=== PATIENT | male | born 1960 ===

== ENCOUNTER 2023-05-03 11:58 | Outpatient (CLI) | payer OTHER, SELFPAY ==
[2023-05-03 10:02] LABS: Abs Immature Grans 0.04 10^3/uL (0.0-0.06); Absolute Basophil Count 0.06 10^3/uL (0.0-0.2); Absolute Eosinophil Count 0.87 10^3/uL (0.0-0.7); Absolute Monocyte Count 0.66 10^3/uL (0.1-0.8); Absolute Neutrophil Count 6.08 10^3/uL (1.2-6.7); Basophils % 0.5; Eosinophils % 7.1; HCT 41.1 % (40.0-50.0); HGB 13.9 g/dL (13.5-17.5); Immature Grans % 0.3; MCH 29.3 pg (27.0-33.0); MCHC 33.8 % (32.0-36.0); MCV 87 fL (80-95); MPV 8.1 fL (8.0-11.0); Monocytes % 5.4; Neutrophils % 49.7; Platelet Count 331 10^3/uL (130-400); RBC 4.74 10^6/uL (4.36-5.78); RDW 12.9 % (11.8-14.1); RDW-SD 40.7 fL; WBC 12.23 10^3/uL (4.4-10.8)
[2023-05-03 10:03] LABS: Absolute Lymphocyte Count 4.53 10^3/uL (1.2-3.4)
[2023-05-03 10:17] LABS: ALT 16 U/L (16-63); AST 13 U/L (15-37); Albumin 3.3 g/dL (3.4-5.0); Alkaline Phosphatase 114 U/L (46-116); Anion Gap 9.4 mmol/L (3-11); BUN 15 mg/dL (7-18); Bilirubin, Total 0.4 mg/dL (0.2-1.0); CO2 28.6 mmol/L (21.0-32.0); CREATININE 0.9 mg/dL (0.70-1.30); Calcium 9.3 mg/dL (8.5-10.1); Chloride 102 mmol/L (98-107); Estimated GFR 95.97 (mL/min/1.73m2); Glucose 100 mg/dL (74-106); Magnesium 1.8 mg/dL (1.8-2.4); Potassium 4.4 mmol/L (3.5-5.1); Sodium 140 mmol/L (136-145); Total Protein 7.6 g/dL (6.4-8.2)
--- OUTSIDE RECORDS SUMMARY | 2023-05-03 12:00 | XMS_ITS | Continuity of Care Document ---
Author Name Unknown Organization [facility] Address [address] [place] [address] Encounter [facility] NBR [id number] Date(s): 04/22/23 - 04/22/[address] [address]- Encounter Diagnosis Other specified disorders of brain(Final) - Malignant neoplasm of upper lobe, right bronchus or lung(Final) - Discharge Disposition: Home or Self Care Attending Physician: PINA CUMMINGS MD Admitting Physician: PINA CUMMINGS MD Referring Physician: PINA CUMMINGS MD Results Radiology Reports * Exam Date Time Procedure Performing Provider Status 04/22/23 9:07 AM MRI Brain w/ + w/o Contrast Janet Fuller; Gaurav (Verified) Notes: (MRI Brain w/ + w/o Contrast) Reason For Exam: LUNG CANCER MRI Brain w/ + w/o Contrast EXAM DESCRIPTION: MRI Brain w/ + w/o Contrast 04/22/2023 INDICATION: LUNG CANCER TECHNIQUE: Technique: Multiplanar MRI examination of the head including FLAIR and diffusion series. Postcontrast T1-weighted images were obtained in 3 planes. MultiHance contrast was utilized COMPARISON: None FINDINGS: No intracranial mass, mass effect or abnormal enhancement with no evidence of intracranial metastatic disease. Diffusion weighted images demonstrate no focal area of acute or recent infarct. No hydrocephalus, extra-axial fluid collection or blood breakdown products. Small focal areas of decreased signal in the basal ganglia region bilaterally on gradient echo images with consistent with basal ganglia calcification Multiple small scattered nonspecific foci of periventricular and subcortical white matter T2 signal prolongation bilaterally. Diagnostic possibilities would include mild chronic microangiopathy, sequela of migraine headaches, vasculitic process, or less likely demyelination Cerebellar tonsil position is normal. The pituitary gland demonstrates normal morphology and signal intensity. No significant temporal horn asymmetry. Visualized vascular flow voids and cranial nerves appear within normal limits. Mild left ethmoid sinus mucosal thickening. Remaining visualized paranasal sinuses and mastoid air cells are grossly clear. IMPRESSION: No intracranial mass, mass effect or abnormal enhancement with no evidence of intracranial metastatic disease No acute or recent infarct on diffusion series Scattered small nonspecific periventricular and subcortical white matter lesions bilaterally with diagnostic possibilities as detailed above. JOB #: [id number] Final Signed by: Jian Shabazz MD Signed (Electronic Signature): 04/22/2023 10:09 am * Exam Date Time Procedure Performing Provider Status 04/22/23 8:[address] Chest w/ Contrast Megha Lewis; Auth (Verified) Notes: (CT Chest w/ Contrast) Reason For Exam: LUNG CANCER CT Chest w/ Contrast EXAM DESCRIPTION: CT Chest w/ Contrast 04/22/2023 INDICATION: LUNG CANCER TECHNIQUE: All CT scans at this facility use at least one of these dose optimization techniques: Automated exposure control; mA and/or kV adjustment per patient size (includes targeted exams where dose is matched to clinical indication); or iterative reconstruction. Technique: Axial CT images of the chest with IV contrast administration 100 cc of Isovue-300 contrast was utilized COMPARISON: None FINDINGS: No mediastinal mass or adenopathy with scattered nonenlarged mediastinal lymph nodes. No hilar adenopathy. Mildly enlarged bilateral axillary lymph nodes measuring up to 13 mm in short axis dimension. No pericardial effusion. No central pulmonary artery filling defect identified. Normal caliber thoracic aorta with mild atherosclerotic calcifications. Paraseptal emphysematous changes bilaterally most pronounced in the upper lobe distribution. Pleural-based spiculated soft tissue mass in the lateral right apex highly suspicious for neoplasm measuring 3.1 x 3.6 x 3 cm in transverse, AP and CC dimensions respectively. No adjacent osseous rib destructive changes. Tiny noncalcified nodular opacity in the right mid chest on image number [id number] measuring 3.2 mm in diameter, too small to characterize. No additional pulmonary nodule. Mild right pleural effusion with mild right basilar atelectatic changes. No left pleural effusion. No pneumothorax. Subcutaneous emphysema in the right anterolateral chest extending into the right upper abdominal wall with no abnormal fluid collection or mass identified in these regions. Small low-attenuation lesion in the anterior aspect of the left hepatic lobe measuring 6.2 mm in diameter with tiny low-attenuation lesion in the posterior segment right hepatic lobe measuring 4.3 mm in diameter. Lesions are too small to characterize. No mass or adenopathy otherwise noted in the visualized upper abdomen with no adrenal mass identified. No suspicious regional osseous lesions. Ovoid lytic lesion in the T11 vertebral body with appearance suggesting probable vertebral body hemangioma. IMPRESSION: Spiculated pleural based mass in the lateral right apex measuring 3.1 x 3.6 x 3 cm highly suspicious for neoplasm. Tiny noncalcified nodule in the right mid chest measuring 3.2 mm in diameter, too small to characterize. Small synchronous neoplasm or metastatic lesion can not be excluded. Continued follow-up is recommended Mild right pleural effusion with mild right basilar atelectatic changes Bilateral axillary adenopathy No mediastinal, hilar or axillary adenopathy. Subcutaneous emphysema in the right anterolateral chest wall extending into the upper abdominal wall with no abnormal fluid collection or mass identified in these regions. Small low-attenuation lesions in the liver which are too small to characterize. JOB #: [id number] Final Signed by: Jian Shabazz MD Signed (Electronic Signature): 04/22/2023 9:39 am
== END 2023-05-03 11:59 | disposition home or self-care (01) ==
LOC: LBO 11:59
PROVIDERS: Visit Provider Internal Medicine Medical Oncology
DX: C34.11 Malignant neoplasm of upper lobe, right bronchus or lung (principal)
CPT/HCPCS: 36415; 80053; 83735; 85025

== ENCOUNTER 2023-05-11 08:43 | Outpatient (CLI) | payer OTHER, SELFPAY ==
[2023-05-11 08:17] LABS: Abs Immature Grans 0.05 10^3/uL (0.0-0.06); Absolute Basophil Count 0.05 10^3/uL (0.0-0.2); Absolute Eosinophil Count 0.39 10^3/uL (0.0-0.7); Absolute Lymphocyte Count 3.28 10^3/uL (1.2-3.4); Absolute Monocyte Count 0.52 10^3/uL (0.1-0.8); Absolute Neutrophil Count 4.48 10^3/uL (1.2-6.7); Basophils % 0.6; Eosinophils % 4.4; HCT 40.2 % (40.0-50.0); HGB 13.4 g/dL (13.5-17.5); Immature Grans % 0.6; Lymphocytes % 37.4; MCH 29.4 pg (27.0-33.0); MCHC 33.3 % (32.0-36.0); MCV 88 fL (80-95); MPV 8.5 fL (8.0-11.0); Monocytes % 5.9; Neutrophils % 51.1; Platelet Count 302 10^3/uL (130-400); RBC 4.56 10^6/uL (4.36-5.78); RDW 12.6 % (11.8-14.1); RDW-SD 40.9 fL; WBC 8.77 10^3/uL (4.4-10.8)
[2023-05-11 08:37] LABS: ALT 16 U/L (16-63); AST 11 U/L (15-37); Albumin 3.4 g/dL (3.4-5.0); Alkaline Phosphatase 100 U/L (46-116); Anion Gap 5.3 mmol/L (3-11); BUN 14 mg/dL (7-18); Bilirubin, Total 0.4 mg/dL (0.2-1.0); CO2 30.7 mmol/L (21.0-32.0); CREATININE 0.9 mg/dL (0.70-1.30); Calcium 9.4 mg/dL (8.5-10.1); Chloride 103 mmol/L (98-107); Estimated GFR 95.97 (mL/min/1.73m2); Glucose 104 mg/dL (74-106); Magnesium 1.9 mg/dL (1.8-2.4); Potassium 4.3 mmol/L (3.5-5.1); Sodium 139 mmol/L (136-145); Total Protein 7.4 g/dL (6.4-8.2)
== END 2023-05-11 08:44 | disposition home or self-care (01) ==
LOC: LBO 08:44
PROVIDERS: Visit Provider Internal Medicine Medical Oncology
DX: C34.11 Malignant neoplasm of upper lobe, right bronchus or lung (principal)
CPT/HCPCS: 36415; 80053; 83735; 85025

== ENCOUNTER 2023-05-18 09:43 | Outpatient (CLI) | payer OTHER, SELFPAY ==
[2023-05-18 07:56] LABS: Abs Immature Grans 0.02 10^3/uL (0.0-0.06); Absolute Basophil Count 0.03 10^3/uL (0.0-0.2); Absolute Eosinophil Count 0.23 10^3/uL (0.0-0.7); Absolute Lymphocyte Count 2.22 10^3/uL (1.2-3.4); Absolute Monocyte Count 0.42 10^3/uL (0.1-0.8); Absolute Neutrophil Count 2.67 10^3/uL (1.2-6.7); Basophils % 0.5; Eosinophils % 4.1; HGB 12.9 g/dL (13.5-17.5); Immature Grans % 0.4; Lymphocytes % 39.7; MCH 29.7 pg (27.0-33.0); MCHC 33.9 % (32.0-36.0); MCV 88 fL (80-95); MPV 8.2 fL (8.0-11.0); Monocytes % 7.5; Neutrophils % 47.8; Platelet Count 267 10^3/uL (130-400); RBC 4.34 10^6/uL (4.36-5.78); RDW 12.9 % (11.8-14.1); RDW-SD 40.7 fL; WBC 5.59 10^3/uL (4.4-10.8)
[2023-05-18 08:12] LABS: ALT 18 U/L (16-63); AST 11 U/L (15-37); Albumin 3.3 g/dL (3.4-5.0); Alkaline Phosphatase 89 U/L (46-116); Anion Gap 7.5 mmol/L (3-11); BUN 22 mg/dL (7-18); Bilirubin, Total 0.4 mg/dL (0.2-1.0); CO2 28.5 mmol/L (21.0-32.0); CREATININE 0.9 mg/dL (0.70-1.30); Calcium 9.2 mg/dL (8.5-10.1); Chloride 101 mmol/L (98-107); Estimated GFR 95.97 (mL/min/1.73m2); Glucose 97 mg/dL (74-106); Magnesium 1.7 mg/dL (1.8-2.4); Potassium 4.4 mmol/L (3.5-5.1); Sodium 137 mmol/L (136-145); Total Protein 7.2 g/dL (6.4-8.2)
== END 2023-05-18 09:44 | disposition home or self-care (01) ==
LOC: LBO 09:44
PROVIDERS: Visit Provider Internal Medicine Medical Oncology
DX: C34.11 Malignant neoplasm of upper lobe, right bronchus or lung (principal)
CPT/HCPCS: 36415; 80053; 83735; 85025

== ENCOUNTER 2023-05-24 05:19 | Outpatient (CLI) | payer OTHER, SELFPAY ==
[2023-05-24 08:59] LABS: Abs Immature Grans 0.02 10^3/uL (0.0-0.06); Absolute Basophil Count 0.03 10^3/uL (0.0-0.2); Absolute Eosinophil Count 0.11 10^3/uL (0.0-0.7); Absolute Lymphocyte Count 1.78 10^3/uL (1.2-3.4); Absolute Monocyte Count 0.33 10^3/uL (0.1-0.8); Absolute Neutrophil Count 2.57 10^3/uL (1.2-6.7); Basophils % 0.6; Eosinophils % 2.3; HCT 36.7 % (40.0-50.0); HGB 12.6 g/dL (13.5-17.5); Immature Grans % 0.4; Lymphocytes % 36.8; MCH 30.4 pg (27.0-33.0); MCHC 34.3 % (32.0-36.0); MCV 88 fL (80-95); MPV 8.6 fL (8.0-11.0); Monocytes % 6.8; Neutrophils % 53.1; Platelet Count 242 10^3/uL (130-400); RBC 4.15 10^6/uL (4.36-5.78); RDW 13.3 % (11.8-14.1); RDW-SD 42.7 fL; WBC 4.84 10^3/uL (4.4-10.8)
[2023-05-24 09:20] LABS: ALT 24 U/L (16-63); AST 11 U/L (15-37); Albumin 3.3 g/dL (3.4-5.0); Alkaline Phosphatase 87 U/L (46-116); Anion Gap 5.9 mmol/L (3-11); BUN 13 mg/dL (7-18); Bilirubin, Total 0.4 mg/dL (0.2-1.0); CO2 28.1 mmol/L (21.0-32.0); CREATININE 0.8 mg/dL (0.70-1.30); Calcium 9.2 mg/dL (8.5-10.1); Chloride 104 mmol/L (98-107); Estimated GFR 99.44 (mL/min/1.73m2); Glucose 107 mg/dL (74-106); Magnesium 1.7 mg/dL (1.8-2.4); Potassium 4.5 mmol/L (3.5-5.1); Sodium 138 mmol/L (136-145); Total Protein 7.1 g/dL (6.4-8.2)
== END 2023-05-24 05:20 | disposition home or self-care (01) ==
PROVIDERS: Visit Provider Internal Medicine Medical Oncology
DX: C34.11 Malignant neoplasm of upper lobe, right bronchus or lung (principal)
CPT/HCPCS: 36415; 80053; 83735; 85025

== ENCOUNTER 2023-05-31 05:32 | Outpatient (CLI) | payer OTHER, SELFPAY ==
[2023-05-31 08:14] LABS: Abs Immature Grans 0.03 10^3/uL (0.0-0.06); Absolute Basophil Count 0.03 10^3/uL (0.0-0.2); Absolute Eosinophil Count 0.09 10^3/uL (0.0-0.7); Absolute Lymphocyte Count 1.68 10^3/uL (1.2-3.4); Absolute Monocyte Count 0.35 10^3/uL (0.1-0.8); Absolute Neutrophil Count 2.48 10^3/uL (1.2-6.7); Basophils % 0.6; Eosinophils % 1.9; HCT 38.4 % (40.0-50.0); HGB 13.1 g/dL (13.5-17.5); Immature Grans % 0.6; Lymphocytes % 36.1; MCH 29.6 pg (27.0-33.0); MCHC 34.1 % (32.0-36.0); MCV 87 fL (80-95); MPV 8.6 fL (8.0-11.0); Monocytes % 7.5; Neutrophils % 53.3; Platelet Count 209 10^3/uL (130-400); RBC 4.42 10^6/uL (4.36-5.78); RDW 13.7 % (11.8-14.1); RDW-SD 42.1 fL; WBC 4.66 10^3/uL (4.4-10.8)
[2023-05-31 08:27] LABS: ALT 24 U/L (16-63); AST 11 U/L (15-37); Albumin 3.4 g/dL (3.4-5.0); Alkaline Phosphatase 96 U/L (46-116); Anion Gap 6.5 mmol/L (3-11); BUN 19 mg/dL (7-18); Bilirubin, Total 0.4 mg/dL (0.2-1.0); CO2 28.5 mmol/L (21.0-32.0); CREATININE 0.9 mg/dL (0.70-1.30); Calcium 9.6 mg/dL (8.5-10.1); Chloride 104 mmol/L (98-107); Estimated GFR 95.97 (mL/min/1.73m2); Glucose 112 mg/dL (74-106); Magnesium 1.9 mg/dL (1.8-2.4); Potassium 4.6 mmol/L (3.5-5.1); Sodium 139 mmol/L (136-145); Total Protein 7.2 g/dL (6.4-8.2)
== END 2023-05-31 05:33 | disposition home or self-care (01) ==
LOC: LBO 05:32
PROVIDERS: Visit Provider Internal Medicine Medical Oncology
DX: C34.11 Malignant neoplasm of upper lobe, right bronchus or lung (principal)
CPT/HCPCS: 36415; 80053; 83735; 85025

== ENCOUNTER 2023-06-07 04:53 | Outpatient (CLI) | payer OTHER, SELFPAY ==
[2023-06-07 08:23] LABS: Abs Immature Grans 0.03 10^3/uL (0.0-0.06); Absolute Basophil Count 0.03 10^3/uL (0.0-0.2); Absolute Eosinophil Count 0.12 10^3/uL (0.0-0.7); Absolute Lymphocyte Count 1.58 10^3/uL (1.2-3.4); Absolute Monocyte Count 0.41 10^3/uL (0.1-0.8); Absolute Neutrophil Count 3.65 10^3/uL (1.2-6.7); Basophils % 0.5; Eosinophils % 2.1; HGB 12.2 g/dL (13.5-17.5); Immature Grans % 0.5; Lymphocytes % 27.1; MCH 30.6 pg (27.0-33.0); MCHC 34.9 % (32.0-36.0); MCV 88 fL (80-95); MPV 8.7 fL (8.0-11.0); Neutrophils % 62.8; Platelet Count 184 10^3/uL (130-400); RBC 3.99 10^6/uL (4.36-5.78); RDW 14.3 % (11.8-14.1); RDW-SD 44.5 fL; WBC 5.82 10^3/uL (4.4-10.8)
[2023-06-07 09:01] LABS: ALT 27 U/L (16-63); AST 18 U/L (15-37); Albumin 3.3 g/dL (3.4-5.0); Alkaline Phosphatase 92 U/L (46-116); Anion Gap 8.4 mmol/L (3-11); BUN 14 mg/dL (7-18); Bilirubin, Total 0.5 mg/dL (0.2-1.0); CO2 28.6 mmol/L (21.0-32.0); CREATININE 0.8 mg/dL (0.70-1.30); Chloride 103 mmol/L (98-107); Estimated GFR 99.44 (mL/min/1.73m2); Glucose 105 mg/dL (74-106); Magnesium 1.7 mg/dL (1.8-2.4); Potassium 4.1 mmol/L (3.5-5.1); Sodium 140 mmol/L (136-145); Total Protein 6.9 g/dL (6.4-8.2)
== END 2023-06-07 04:54 | disposition home or self-care (01) ==
LOC: LBO 04:53
PROVIDERS: Visit Provider Internal Medicine Medical Oncology
DX: C34.11 Malignant neoplasm of upper lobe, right bronchus or lung (principal)
CPT/HCPCS: 36415; 80053; 83735; 85025

== ENCOUNTER 2023-06-14 03:20 | Outpatient (CLI) | payer OTHER, SELFPAY ==
[2023-06-14 08:50] LABS: Abs Immature Grans 0.02 10^3/uL (0.0-0.06); Absolute Basophil Count 0.02 10^3/uL (0.0-0.2); Absolute Eosinophil Count 0.09 10^3/uL (0.0-0.7); Absolute Lymphocyte Count 1.22 10^3/uL (1.2-3.4); Absolute Monocyte Count 0.32 10^3/uL (0.1-0.8); Basophils % 0.5; Eosinophils % 2.3; HGB 12.1 g/dL (13.5-17.5); Immature Grans % 0.5; Lymphocytes % 30.7; MCH 30.3 pg (27.0-33.0); MCHC 34.6 % (32.0-36.0); MCV 88 fL (80-95); MPV 8.6 fL (8.0-11.0); Monocytes % 8.1; Neutrophils % 57.9; Platelet Count 185 10^3/uL (130-400); RBC 3.99 10^6/uL (4.36-5.78); RDW 14.6 % (11.8-14.1); RDW-SD 46.3 fL; WBC 3.97 10^3/uL (4.4-10.8)
[2023-06-14 09:52] LABS: ALT 29 U/L (16-63); AST 14 U/L (15-37); Albumin 3.3 g/dL (3.4-5.0); Alkaline Phosphatase 93 U/L (46-116); BUN 16 mg/dL (7-18); Bilirubin, Total 0.3 mg/dL (0.2-1.0); CREATININE 0.8 mg/dL (0.70-1.30); Calcium 9.3 mg/dL (8.5-10.1); Chloride 105 mmol/L (98-107); Estimated GFR 99.44 (mL/min/1.73m2); Glucose 108 mg/dL (74-106); Magnesium 1.8 mg/dL (1.8-2.4); Potassium 4.3 mmol/L (3.5-5.1); Sodium 142 mmol/L (136-145)
== END 2023-06-14 03:21 | disposition home or self-care (01) ==
LOC: LBO 03:20
PROVIDERS: Visit Provider Internal Medicine Medical Oncology
DX: C34.11 Malignant neoplasm of upper lobe, right bronchus or lung (principal)
CPT/HCPCS: 36415; 80053; 83735; 85025

== ENCOUNTER 2023-07-12 04:20 | Outpatient (CLI) | payer MEDICARE, SELFPAY ==
[2023-07-12 13:41] LABS: Abs Immature Grans 0.03 10^3/uL (0.0-0.06); Absolute Basophil Count 0.04 10^3/uL (0.0-0.2); Absolute Eosinophil Count 0.14 10^3/uL (0.0-0.7); Absolute Lymphocyte Count 1.72 10^3/uL (1.2-3.4); Absolute Monocyte Count 0.67 10^3/uL (0.1-0.8); Absolute Neutrophil Count 4.99 10^3/uL (1.2-6.7); Basophils % 0.5; Eosinophils % 1.8; HCT 35.6 % (40.0-50.0); HGB 12.3 g/dL (13.5-17.5); Immature Grans % 0.4; Lymphocytes % 22.7; MCH 30.9 pg (27.0-33.0); MCHC 34.6 % (32.0-36.0); MCV 89 fL (80-95); MPV 8.4 fL (8.0-11.0); Monocytes % 8.8; Neutrophils % 65.8; Platelet Count 241 10^3/uL (130-400); RBC 3.98 10^6/uL (4.36-5.78); RDW 16.3 % (11.8-14.1); RDW-SD 53.5 fL; WBC 7.59 10^3/uL (4.4-10.8)
[2023-07-12 14:00] LABS: ALT 18 U/L (16-63); AST 12 U/L (15-37); Albumin 3.4 g/dL (3.4-5.0); Alkaline Phosphatase 100 U/L (46-116); Anion Gap 8.4 mmol/L (3-11); BUN 12 mg/dL (7-18); Bilirubin, Total 0.6 mg/dL (0.2-1.0); CO2 28.6 mmol/L (21.0-32.0); CREATININE 0.9 mg/dL (0.70-1.30); Calcium 9.2 mg/dL (8.5-10.1); Chloride 104 mmol/L (98-107); Estimated GFR 95.37 (mL/min/1.73m2); Glucose 86 mg/dL (74-106); Magnesium 1.7 mg/dL (1.8-2.4); Sodium 141 mmol/L (136-145)
== END 2023-07-12 04:21 | disposition home or self-care (01) ==
LOC: LBO 04:20
PROVIDERS: Visit Provider Internal Medicine Medical Oncology
DX: C34.11 Malignant neoplasm of upper lobe, right bronchus or lung (principal)
CPT/HCPCS: 36415; 80053; 83735; 85025